=== PATIENT | female | born 1955 | race Caucasian/White ===

== ENCOUNTER 2022-06-23 14:43 | Emergency (ER) | payer MEDICARE, BC ==
[2022-06-23] MEDS ORDERED: Sodium Chloride 0.9% 10 ML Syringe FLUSH PRN (14:48)
[2022-06-23] MEDS: Ertapenem 1 GM Vial IVPUSH ONE (15:00)
[2022-06-23] MEDS: Acetaminophen 500 MG Tab PO ONE (15:15)
[2022-06-23 15:31] LABS: PTT,PARTIAL THROMBOPLSTIN TIME 27.2 SEC (20.5-30.9)
[2022-06-23 15:43] LABS: CHLORIDE,CL 94 mmol/L (98-107); SODIUM,NA 134 mmol/L (136-145)
[2022-06-23 15:51] LABS: ESTIMATED GFR 61 mL/min (>=60)
[2022-06-23 15:56] LABS: CORONAVIRUS COVID-19 NAA NEGATIVE (NEGATIVE); RESPIRATORY SYNCYTIAL VIR NAA NEGATIVE (NEGATIVE)
[2022-06-23] MEDS: Sodium Chloride 0.9% 1,000 ML IV SCH (17:14)
[2022-06-23] MEDS: Magnesium Sulfate/Water 4 GM in Premix Bag 1 BAG IV ONE (17:15)
[2022-06-23] MEDS: Ciprofloxacin in D5W 400 MG in Premix Bag 1 BAG IV ONE ×2 (19:05)
== END 2022-06-23 19:35 | disposition short-term general hospital (02) ==
LOC: VM.ED 14:43
DX: M97.32XA Periprosthetic fracture around internal prosthetic left shoulder joint, initial encounter (principal); A41.9 Sepsis, unspecified organism; C82.98 Follicular lymphoma, unspecified, lymph nodes of multiple sites; E83.42 Hypomagnesemia; R53.1 Weakness; R50.9 Fever, unspecified; Z88.5 Allergy status to narcotic agent; Z88.2 Allergy status to sulfonamides; Z88.1 Allergy status to other antibiotic agents; Z79.899 Other long term (current) drug therapy; Z20.822 Contact with and (suspected) exposure to COVID-19
CPT/HCPCS: 0241U; 36415; 71045; 73060-LT; 80053; 83605; 83735; 84100; 84145; 85025; 85610; 85730; 86140; 87040; 87070; 87077; 87186; 96365; 96367; 96375; 99283-25; 99284; A9270-GY; J0744; J1335; J3370; J3475; J7030; J7050